=== PATIENT | male | born 1955 | race Caucasian/White ===

== ENCOUNTER 2021-08-29 08:54 | Emergency (ER) | payer MEDICARE, MEDICAID ==
[~2021-08-29] VITALS: Ht 177.8 cm; Wt 63.5 kg
[~2021-08-29 08:54] MED LIST: ALBMDI INH; CLON1TAB12 PO; HYDR-3919; LIP40 PO; MAGN400T10 PO; PHEDM120 PO; SER25 PO; SPIRIVA INH; VITD2000 PO; ZOLP10TA2 PO
[2021-08-29 08:56] VITALS: BP_SYST 102
--- NOTE | 2021-08-29 08:56 | NUR ---
Placed in room 6 . Placed on landscape account manager, blood pressure machine and pulse oximeter. To gown for exam. Side rails up. Report given to KANIKA SHAW.
--- NOTE | 2021-08-29 09:05 | NUR ---
Pt BIBA from home with c/o of hematuria from his monroy catheter. Pt is restless, grimicing and gaurding his lower abdomen. Pt is non-verbal, non-ambulatory, and incontinent. Pt has a history of CVA, COPD, and HTN. Jasmin urine is noted in the monroy bag. Patient is connected to the compliance monitor and safety precautions are in place.
--- NOTE | 2021-08-29 09:15 | NUR ---
Dr. Herrera at bedside with patient.
--- NOTE | 2021-08-29 09:16 | NUR ---
is at bedside.
[2021-08-29] MEDS ORDERED: LORazepam 2 MG/ML VIAL IVP ONE (09:30)
[2021-08-29] MEDS ORDERED: NACL 0.9% 1,000 ML IV ONE (09:30)
[2021-08-29 09:39] LABS: BASOPHILS % (AUTO) 0.4 % (0.0-2.0); EOSINOPHILS # (AUTO) 0.2 K/uL (0.0-0.4); EOSINOPHILS % (AUTO) 4.3 % (0.0-4.0); HEMATOCRIT 39.4 % (36-54); HEMOGLOBIN 12.8 g/dL (14.0-18.0); LYMPHOCYTES # (AUTO) 1.4 K/uL (1.0-5.5); LYMPHOCYTES % (AUTO) 29.5 % (20.5-51.5); MEAN CORPUSCULAR HEMOGLOBIN 30 pg (27-31); MEAN CORPUSCULAR HGB CONC 33 % (32-36); MEAN CORPUSCULAR VOLUME 91 fL (79.0-98.0); MONOCYTES # (AUTO) 0.5 K/uL (0.0-1.0); MONOCYTES % (AUTO) 9.9 % (1.7-9.3); NEUTROPHILS # (AUTO) 2.7 K/uL (1.8-7.7); NEUTROPHILS % (AUTO) 55.9 % (40.0-70.0); PLATELET COUNT (AUTO) 182 K/uL (130-430); RED BLOOD CELL COUNT(AUTO) 4.33 MIL/uL (4.2-6.2); RED CELL DISTRIBUTION WIDTH 13.7 % (9.0-15.0); WHITE BLOOD COUNT (AUTO) 4.8 K/uL (4.8-10.8)
[2021-08-29 09:56] LABS: INR 1.1 (0.80-1.20); PROTHROMBIN TIME 11.2 SECS (9.5-12.5)
[2021-08-29 10:11] LABS: CALCIUM 8.6 mg/dL (8.4-11.0); CREATININE 0.8 mg/dL (0.55-1.30); POTASSIUM 3.8 mmol/L (3.5-5.1)
[2021-08-29 10:18] LABS: ALBUMIN 3.3 g/dL (3.4-4.8); TOTAL BILIRUBIN 0.6 mg/dL (0.0-1.0)
--- NOTE | 2021-08-29 10:40 | NUR ---
Abdullahi catheter replaced with sterile technique. Irrigated with 150 ml of NS per MD order.
--- NOTE | 2021-08-29 10:55 | NUR ---
Urine collected and walked over to lab.
[2021-08-29 11:12] LABS: BILIRUBIN,URINE NEGATIVE (NEGATIVE); BLOOD, URINE 3+ (NEGATIVE); CLARITY/URINE SL CLOUDY (CLEAR); COLOR,URINE RED (YELLOW); GLUCOSE,URINE NEGATIVE (NEGATIVE); KETONES,URINE NEGATIVE (NEGATIVE); LEUKOCYTE ESTERASE ,URINE NEGATIVE (NEGATIVE); NITRITE, URINE NEGATIVE (NEGATIVE); PH,URINE 6.5 (5.0-8.0); PROTEIN URINE 2+ (NEGATIVE); UROBILINOGEN,URINE 0.2 (0.2-1.0)
[2021-08-29] MEDS ORDERED: fentaNYL CITRATE/PF 100 MCG/2 ML AMP IVP ONE (11:45)
[2021-08-29 11:48] LABS: BACTERIA,URINE None Seen /HPF (None Seen); RBC,URINE >100 /HPF (0-3); WBC,URINE NONE SEEN /HPF (0-3)
--- NOTE | 2021-08-29 11:55 | NUR ---
Continous bladder irrigation started per MD order. Pt tolerating well, pink tinged urine noted. Some leakage of clear fluids from the penis, stated that was normal for him.
--- NOTE | 2021-08-29 12:08 | NUR ---
Patient transported to radiology via GURNEY, accompanied by STAFF.
--- NOTE | 2021-08-29 15:29 | NUR ---
Called to notify about discharge and a change of clothes. Stated she will be here in 30 minutes.
[2021-08-29 16:06] VITALS: BP_SYST 140
--- NOTE | 2021-08-29 16:07 | NUR ---
Patient given written and verbal discharge instructions and verbalizes understanding. ER MD discussed with patient the results and treatment provided. Patient in stable condition. ID arm band removed. No Rx given. Patient educated on pain management and to follow up with PMD. Pain Scale 0/10. Opportunity for questions provided and answered. Medication side effect fact sheet provided.
== END 2021-08-29 16:06 | disposition home or self-care (01) ==
LOC: SED 08:54
DX: R31.9 Hematuria, unspecified (principal); Z88.5 Allergy status to narcotic agent; Z88.6 Allergy status to analgesic agent
CPT/HCPCS: 36415; 51702; 74176; 76376; 80053; 81000; 83690; 85025; 85610; 96361; 96374; 96375; 99285; J2060; J3010; J7030

== ENCOUNTER 2022-07-27 12:50 | Emergency (ER) | payer MEDICARE, MEDICAID ==
[~2022-07-27] VITALS: Ht 182.9 cm; Wt 68.0 kg
[2022-07-27 12:54] VITALS: BP_SYST 112
[2022-07-27 14:12] LABS: BASOPHILS % (AUTO) 0.3 % (0.0-2.0); EOSINOPHILS % (AUTO) 0.4 % (0.0-4.0); HEMATOCRIT 41.1 % (36-54); HEMOGLOBIN 13.8 g/dL (14.0-18.0); LYMPHOCYTES # (AUTO) 1.4 K/uL (1.0-5.5); LYMPHOCYTES % (AUTO) 16.6 % (20.5-51.5); MEAN CORPUSCULAR HEMOGLOBIN 30 pg (27-31); MEAN CORPUSCULAR HGB CONC 34 % (32-36); MEAN CORPUSCULAR VOLUME 90 fL (79.0-98.0); MONOCYTES # (AUTO) 0.7 K/uL (0.0-1.0); MONOCYTES % (AUTO) 9.1 % (1.7-9.3); NEUTROPHILS % (AUTO) 73.6 % (40.0-70.0); PLATELET COUNT (AUTO) 300 K/uL (130-430); RED BLOOD CELL COUNT(AUTO) 4.58 MIL/uL (4.2-6.2); WHITE BLOOD COUNT (AUTO) 8.1 K/uL (4.8-10.8)
[2022-07-27 14:29] LABS: CALCIUM 8.7 mg/dL (8.4-11.0); CREATININE 0.69 mg/dL (0.55-1.30)
[2022-07-27 14:34] LABS: ALBUMIN 3.1 g/dL (3.4-4.8); TOTAL BILIRUBIN 0.5 mg/dL (0.0-1.0)
[2022-07-27 14:49] LABS: BILIRUBIN,URINE NEGATIVE (NEGATIVE); BLOOD, URINE 1+ (NEGATIVE); CLARITY/URINE CLEAR (CLEAR); COLOR,URINE YELLOW (YELLOW); GLUCOSE,URINE NEGATIVE (NEGATIVE); KETONES,URINE NEGATIVE (NEGATIVE); LEUKOCYTE ESTERASE ,URINE NEGATIVE (NEGATIVE); NITRITE, URINE NEGATIVE (NEGATIVE); PROTEIN URINE NEGATIVE (NEGATIVE); UROBILINOGEN,URINE 0.2 (0.2-1.0)
[2022-07-27 14:57] LABS: WBC,URINE 0-3 /HPF (0-3)
[2022-07-27 14:58] LABS: BACTERIA,URINE FEW /HPF (None Seen); MUCUS,URINE None Seen /LPF (None Seen); URINE AMORPHOUS PHOSPHATES 1+ /HPF (None Seen)
[2022-07-27] MEDS ORDERED: HYDROcodone/ACETAMIN 5-325 MG TAB (NORCO/ VICODIN) PO ONE (15:30)
[2022-07-27] MEDS ORDERED: POLY119P2 PO (17:23)
[2022-07-27 18:09] VITALS: BP_SYST 112
== END 2022-07-27 18:09 | disposition home or self-care (01) ==
LOC: SED 12:50
DX: K59.00 Constipation, unspecified (principal); R33.9 Retention of urine, unspecified; N40.0 Benign prostatic hyperplasia without lower urinary tract symptoms; R10.9 Unspecified abdominal pain; J44.9 Chronic obstructive pulmonary disease, unspecified; Z88.5 Allergy status to narcotic agent; Z88.6 Allergy status to analgesic agent; Z79.899 Other long term (current) drug therapy
CPT/HCPCS: 99285; 74177; 80053; 81000; 83690; 85025; 36415; 76376; 83605; Q9967

== ENCOUNTER 2022-10-27 02:45 | Inpatient (IN) | payer MEDICARE, MEDICAID ==
[2022-10-27] VITALS (7 sets, daily range): BP systolic 115–136; PULSE 84–98; RESP 17–22; TEMP 97.2–97.7; O2SAT 96–98
[~2022-10-27] VITALS: Ht 172.7 cm; Wt 54.4 kg
[~2022-10-27 02:45] MED LIST changes: +ALBU2.5V7 INH; +CLOP75TA32 PO; +DOXY100C5 PO; +HYDR-3927 PO; +IPRA4AER INH; +POLY119P2 PO; +PRO40 PO; +SENN15TA PO
[2022-10-27] MEDS ORDERED: NACL 0.9% 1,000 ML IV ONE ×2 (03:00→06:30)
[2022-10-27] MEDS ORDERED: ONDANSETRON HCL 4 MG/2 ML VIAL IVP ONE (03:00)
[2022-10-27 03:37] LABS: BASOPHILS % (AUTO) 0.3 % (0.0-2.0); HEMATOCRIT 49.2 % (36-54); HEMOGLOBIN 15.8 g/dL (14.0-18.0); LYMPHOCYTES # (AUTO) 0.6 K/uL (1.0-5.5); LYMPHOCYTES % (AUTO) 4.2 % (20.5-51.5); MEAN CORPUSCULAR HEMOGLOBIN 29 pg (27-31); MEAN CORPUSCULAR HGB CONC 32 % (32-36); MEAN CORPUSCULAR VOLUME 90 fL (79.0-98.0); MONOCYTES # (AUTO) 0.9 K/uL (0.0-1.0); MONOCYTES % (AUTO) 5.6 % (1.7-9.3); NEUTROPHILS # (AUTO) 13.8 K/uL (1.8-7.7); NEUTROPHILS % (AUTO) 89.9 % (40.0-70.0); PLATELET COUNT (AUTO) 326 K/uL (130-430); RED BLOOD CELL COUNT(AUTO) 5.45 MIL/uL (4.2-6.2); RED CELL DISTRIBUTION WIDTH 14.9 % (9.0-15.0); WHITE BLOOD COUNT (AUTO) 15.3 K/uL (4.8-10.8)
[2022-10-27 03:44] LABS: CALCIUM 9.3 mg/dL (8.4-11.0); CREATININE 0.79 mg/dL (0.55-1.30)
[2022-10-27 03:48] LABS: ALBUMIN 3.7 g/dL (3.4-4.8); TOTAL BILIRUBIN 0.6 mg/dL (0.0-1.0)
[2022-10-27 06:28] LABS: BILIRUBIN,URINE NEGATIVE (NEGATIVE); BLOOD, URINE 1+ (NEGATIVE); COLOR,URINE YELLOW (YELLOW); GLUCOSE,URINE NEGATIVE (NEGATIVE); KETONES,URINE TRACE (NEGATIVE); LEUKOCYTE ESTERASE ,URINE NEGATIVE (NEGATIVE); NITRITE, URINE NEGATIVE (NEGATIVE); PROTEIN URINE TRACE (NEGATIVE); UROBILINOGEN,URINE 0.2 (0.2-1.0)
[2022-10-27 06:31] LABS: CLARITY/URINE HAZY (CLEAR)
[2022-10-27 06:34] LABS: BACTERIA,URINE FEW /HPF (None Seen)
[2022-10-27 06:35] LABS: MUCUS,URINE 1+ /LPF (None Seen)
[2022-10-27] MEDS ORDERED: PIPERACILLIN/TAZO 3.375 GM in NS 50 ML IV ONE (07:00)
[2022-10-27] MEDS ORDERED: PIPERACILLIN/TAZOBACTAM 3.375 GM/VIAL (ZOSYN) IV ONE (07:16)
[2022-10-27 07:35] LABS: ACETONE, SERUM NEGATIVE (NEGATIVE)
[2022-10-27 07:46] LABS: AMYLASE 91 U/L (0-100)
[2022-10-27 07:47] LABS: LIPASE 57 U/L (73-393)
[2022-10-27] MEDS ORDERED: ALBUTEROL SULFATE 0.083% 2.5 MG/3 ML VIAL.NEB INH PRN (08:45)
[2022-10-27] MEDS ORDERED: MAGNESIUM SULFATE 50 ML IV PRN (08:45)
[2022-10-27] MEDS ORDERED: MUPIROCIN 2% TOPICAL OINTMENT 22 GM NS PRN (08:45)
[2022-10-27] MEDS ORDERED: POTASSIUM CHLORIDE 20 MEQ TAB.PRT.SR PO PRN (08:45)
[2022-10-27] MEDS ORDERED: DOCUSATE SODIUM 100 MG CAPSULE PO PRN (08:45)
[2022-10-27] MEDS ORDERED: IPRATROPIUM/ALBUTEROL SULFATE 120 PUFFS/4 GM INH INH PRN (08:45)
[2022-10-27] MEDS ORDERED: ACETAMINOPHEN 325 MG TABLET PO PRN (08:45)
[2022-10-27] MEDS: D5NS 1,000 ML IV SCH (09:57)
[2022-10-27 10:58] LABS: BILIRUBIN,URINE NEGATIVE (NEGATIVE); BLOOD, URINE 3+ (NEGATIVE); CLARITY/URINE CLEAR (CLEAR); COLOR,URINE YELLOW (YELLOW); GLUCOSE,URINE NEGATIVE (NEGATIVE); KETONES,URINE NEGATIVE (NEGATIVE); LEUKOCYTE ESTERASE ,URINE NEGATIVE (NEGATIVE); NITRITE, URINE NEGATIVE (NEGATIVE); PROTEIN URINE TRACE (NEGATIVE); UROBILINOGEN,URINE 0.2 (0.2-1.0)
[2022-10-27 11:15] LABS: WBC,URINE NONE SEEN /HPF (0-3)
[2022-10-27 11:16] LABS: BACTERIA,URINE None Seen /HPF (None Seen); MUCUS,URINE 1+ /LPF (None Seen)
[2022-10-27] MEDS ORDERED: GASTROGRAFIN 120 ML ONE (11:52)
[2022-10-27] MEDS ORDERED: MORPHINE 2 MG/ML INJ. SYRINGE IVP PRN (12:30)
[2022-10-27] MEDS: ONDANSETRON HCL 4 MG/2 ML VIAL IVP PRN (12:38)
[2022-10-27] MEDS ORDERED: QUEtiapine FUMARATE 25 MG TABLET PO ONE (13:30)
[2022-10-27] MEDS ORDERED: NALOXONE HCL 0.4 MG/ML AMP (NARCAN) IVP PRN (15:15)
[2022-10-27] MEDS ORDERED: LIDOCAINE TOPICAL OINT 5%, 35 GM TP PRN (15:15)
[2022-10-27] MEDS: MORPHINE 2 MG/ML INJ. SYRINGE IVP PRN (16:26)
[2022-10-27] MEDS: PIPERACILLIN/TAZO 3.375 GM in NS 50 ML IV SCH (17:16)
[2022-10-27] MEDS: HEPARIN SODIUM,PORCINE 5,000 UNITS/ML VIAL SUBCUT SCH (21:04)
[2022-10-28] MEDS: D5NS 1,000 ML IV SCH (00:15)
[2022-10-28] MEDS: PIPERACILLIN/TAZO 3.375 GM in NS 50 ML IV SCH ×5 (00:16→23:23)
[2022-10-28] MEDS: MORPHINE 2 MG/ML INJ. SYRINGE IVP PRN ×3 (00:17→15:21)
[2022-10-28] MEDS: ZOLPIDEM TARTRATE 5 MG TABLET PO PRN (00:17)
[2022-10-28 01:11] VITALS: BP_SYST 103; PULSE 107; RESP 18; TEMP 96.7; O2SAT 97
[2022-10-28 06:48] LABS: BASOPHILS % (AUTO) 0.2 % (0.0-2.0); HEMATOCRIT 46.7 % (36-54); HEMOGLOBIN 14.9 g/dL (14.0-18.0); LYMPHOCYTES # (AUTO) 0.9 K/uL (1.0-5.5); LYMPHOCYTES % (AUTO) 6.1 % (20.5-51.5); MEAN CORPUSCULAR HEMOGLOBIN 29 pg (27-31); MEAN CORPUSCULAR HGB CONC 32 % (32-36); MEAN CORPUSCULAR VOLUME 91 fL (79.0-98.0); MONOCYTES # (AUTO) 1.5 K/uL (0.0-1.0); MONOCYTES % (AUTO) 10.7 % (1.7-9.3); NEUTROPHILS # (AUTO) 11.6 K/uL (1.8-7.7); PLATELET COUNT (AUTO) 302 K/uL (130-430); RED BLOOD CELL COUNT(AUTO) 5.15 MIL/uL (4.2-6.2); RED CELL DISTRIBUTION WIDTH 14.7 % (9.0-15.0); WHITE BLOOD COUNT (AUTO) 13.9 K/uL (4.8-10.8)
[2022-10-28 07:19] LABS: CALCIUM 8.7 mg/dL (8.4-11.0); CREATININE 0.99 mg/dL (0.55-1.30)
[2022-10-28] MEDS: D5/0.45 NS 1,000 ML IV SCH (07:45)
[2022-10-28 08:03] VITALS: BP_SYST 134; PULSE 75; RESP 18; TEMP 97.6; O2SAT 96
[2022-10-28] MEDS: QUEtiapine FUMARATE 25 MG TABLET PO SCH (08:29)
[2022-10-28] MEDS: HEPARIN SODIUM,PORCINE 5,000 UNITS/ML VIAL SUBCUT SCH ×2 (08:33→21:26)
[2022-10-28 09:30] VITALS: O2SAT 96
[2022-10-28 12:00] VITALS: BP_SYST 118; PULSE 94; RESP 18; TEMP 98; O2SAT 93
[2022-10-28 16:00] VITALS: BP_SYST 117; PULSE 89; RESP 17; TEMP 97.6; O2SAT 94
[2022-10-28] MEDS: LORazepam 2 MG/ML VIAL IVP PRN (17:47)
[2022-10-28 20:00] VITALS: BP_SYST 117; PULSE 95; RESP 18; TEMP 96.9; O2SAT 95; O2SAT 96
[2022-10-29] VITALS (7 sets, daily range): BP systolic 105–135; PULSE 61–98; RESP 17–18; TEMP 97–99; O2SAT 93–97
[2022-10-29] MEDS: PIPERACILLIN/TAZO 3.375 GM in NS 50 ML IV SCH ×4 (05:21→23:22)
[2022-10-29] MEDS: D5/0.45 NS 1,000 ML IV SCH ×2 (05:21→17:24)
[2022-10-29 05:29] LABS: BASOPHILS # (AUTO) 0.1 K/uL (0.0-0.2); BASOPHILS % (AUTO) 0.7 % (0.0-2.0); EOSINOPHILS % (AUTO) 0.1 % (0.0-4.0); HEMATOCRIT 41.1 % (36-54); HEMOGLOBIN 12.9 g/dL (14.0-18.0); LYMPHOCYTES # (AUTO) 1.4 K/uL (1.0-5.5); LYMPHOCYTES % (AUTO) 10.4 % (20.5-51.5); MEAN CORPUSCULAR HEMOGLOBIN 29 pg (27-31); MEAN CORPUSCULAR HGB CONC 32 % (32-36); MEAN CORPUSCULAR VOLUME 91 fL (79.0-98.0); MONOCYTES # (AUTO) 1.2 K/uL (0.0-1.0); MONOCYTES % (AUTO) 8.9 % (1.7-9.3); NEUTROPHILS # (AUTO) 10.6 K/uL (1.8-7.7); NEUTROPHILS % (AUTO) 79.9 % (40.0-70.0); PLATELET COUNT (AUTO) 242 K/uL (130-430); RED BLOOD CELL COUNT(AUTO) 4.51 MIL/uL (4.2-6.2); RED CELL DISTRIBUTION WIDTH 14.8 % (9.0-15.0); WHITE BLOOD COUNT (AUTO) 13.2 K/uL (4.8-10.8)
[2022-10-29 06:00] LABS: CALCIUM 8.6 mg/dL (8.4-11.0); CREATININE 0.77 mg/dL (0.55-1.30)
[2022-10-29] MEDS: QUEtiapine FUMARATE 25 MG TABLET PO SCH (09:00)
[2022-10-29] MEDS: HEPARIN SODIUM,PORCINE 5,000 UNITS/ML VIAL SUBCUT SCH (09:00)
[2022-10-29] MEDS: IPRATROPIUM/ALBUTEROL SULFATE 3 ML AMPUL.NEB (DUONEB) INH PRN (09:06)
[2022-10-29] MEDS: MORPHINE 2 MG/ML INJ. SYRINGE IVP PRN ×2 (11:38→20:07)
[2022-10-29 15:10] LABS: INR 1.3 (0.80-1.20)
[2022-10-29 15:12] LABS: PROTHROMBIN TIME 13.1 SECS (9.5-12.5)
[2022-10-29] MEDS: D5W 1,000 ML IV SCH (18:23)
[2022-10-29] MEDS: LORazepam 2 MG/ML VIAL IVP PRN (21:28)
[2022-10-30] VITALS (8 sets, daily range): BP systolic 124–144; PULSE 68–79; RESP 18–19; TEMP 97.5–98.2; O2SAT 94–98
[2022-10-30] MEDS: MORPHINE 2 MG/ML INJ. SYRINGE IVP PRN ×3 (00:11→21:52)
[2022-10-30] MEDS: LORazepam 2 MG/ML VIAL IVP PRN ×2 (01:44→22:52)
[2022-10-30] MEDS: D5W 1,000 ML IV SCH ×2 (02:39→11:49)
[2022-10-30] MEDS: PIPERACILLIN/TAZO 3.375 GM in NS 50 ML IV SCH ×4 (05:37→22:48)
[2022-10-30 05:47] LABS: BASOPHILS % (AUTO) 0.1 % (0.0-2.0); EOSINOPHILS # (AUTO) 0.1 K/uL (0.0-0.4); EOSINOPHILS % (AUTO) 0.9 % (0.0-4.0); HEMATOCRIT 39.8 % (36-54); HEMOGLOBIN 12.7 g/dL (14.0-18.0); LYMPHOCYTES # (AUTO) 1.4 K/uL (1.0-5.5); LYMPHOCYTES % (AUTO) 17.1 % (20.5-51.5); MEAN CORPUSCULAR HEMOGLOBIN 29 pg (27-31); MEAN CORPUSCULAR HGB CONC 32 % (32-36); MEAN CORPUSCULAR VOLUME 91 fL (79.0-98.0); MONOCYTES # (AUTO) 1.2 K/uL (0.0-1.0); MONOCYTES % (AUTO) 14.1 % (1.7-9.3); NEUTROPHILS # (AUTO) 5.7 K/uL (1.8-7.7); NEUTROPHILS % (AUTO) 67.8 % (40.0-70.0); PLATELET COUNT (AUTO) 223 K/uL (130-430); RED CELL DISTRIBUTION WIDTH 14.2 % (9.0-15.0); WHITE BLOOD COUNT (AUTO) 8.5 K/uL (4.8-10.8)
[2022-10-30 06:16] LABS: ALBUMIN 2.7 g/dL (3.4-4.8); CALCIUM 8.4 mg/dL (8.4-11.0); CREATININE 0.65 mg/dL (0.55-1.30); TOTAL BILIRUBIN 0.8 mg/dL (0.0-1.0)
[2022-10-30] MEDS ORDERED: POTASSIUM CHLORIDE 40 MEQ, LIDOCAINE JECT 2% PF 100 MG 50 MG in NS 250 ML IV ONE (08:30)
[2022-10-30] MEDS: QUEtiapine FUMARATE 25 MG TABLET PO SCH (09:00)
[2022-10-30] MEDS: IPRATROPIUM/ALBUTEROL SULFATE 3 ML AMPUL.NEB (DUONEB) INH PRN (11:39)
[2022-10-30] MEDS ORDERED: METOCLOPRAMIDE HCL 10 MG/2 ML VIAL IVP PRN (15:45)
[2022-10-30] MEDS ORDERED: ONDANSETRON HCL 4 MG/2 ML VIAL IVP PRN (15:45)
[2022-10-30] MEDS ORDERED: fentaNYL CITRATE/PF 100 MCG/2 ML AMP IVP PRN (15:45)
[2022-10-30] MEDS ORDERED: fentaNYL CITRATE/PF 100 MCG/2 ML AMP ONE ×2 (16:15→18:38)
[2022-10-30] MEDS ORDERED: PROPOFOL 200MG/ 20ML VIAL (DIPRIVAN) IV ONE (16:15)
[2022-10-30] MEDS ORDERED: NEOSTIGMINE METHYLSULFATE 1 MG/ML, 10 ML VIAL ONE (16:15)
[2022-10-30] MEDS ORDERED: SEVOFLURANE 15 MIN GAS INH ONE (16:15)
[2022-10-30] MEDS ORDERED: LR 1,000 ML IV.SOLN IV ONE (16:15)
[2022-10-30] MEDS ORDERED: NS IRRIG SOLN 1000 ML IR ONE (16:15)
[2022-10-30] MEDS ORDERED: MIDAZOLAM HCL 2 MG/2 ML VIAL (VERSED) ONE (16:15)
[2022-10-30] MEDS ORDERED: ROCURONIUM BROMIDE 10 MG/ML (ZEMURON) ONE (16:15)
[2022-10-30] MEDS ORDERED: GLYCOPYRROLATE 0.2 MG/ML VIAL ONE (16:15)
[2022-10-30] MEDS ORDERED: ACETAMINOPHEN I.V. 1000 MG 100 ML IV ONE (16:47)
[2022-10-30] MEDS ORDERED: BUPIVACAINE LIPOSOME/PF 266 MG/20 ML VIAL INFIL ONE (16:47)
[2022-10-30 18:39] LABS: BASOPHILS % (AUTO) 0.2 % (0.0-2.0); EOSINOPHILS # (AUTO) 0.1 K/uL (0.0-0.4); EOSINOPHILS % (AUTO) 1.3 % (0.0-4.0); HEMATOCRIT 41.4 % (36-54); HEMOGLOBIN 13.3 g/dL (14.0-18.0); LYMPHOCYTES # (AUTO) 1.4 K/uL (1.0-5.5); LYMPHOCYTES % (AUTO) 14.9 % (20.5-51.5); MEAN CORPUSCULAR HEMOGLOBIN 29 pg (27-31); MEAN CORPUSCULAR HGB CONC 32 % (32-36); MEAN CORPUSCULAR VOLUME 91 fL (79.0-98.0); MONOCYTES % (AUTO) 9.8 % (1.7-9.3); NEUTROPHILS # (AUTO) 7.2 K/uL (1.8-7.7); NEUTROPHILS % (AUTO) 73.8 % (40.0-70.0); PLATELET COUNT (AUTO) 233 K/uL (130-430); RED BLOOD CELL COUNT(AUTO) 4.53 MIL/uL (4.2-6.2); RED CELL DISTRIBUTION WIDTH 14.2 % (9.0-15.0); WHITE BLOOD COUNT (AUTO) 9.7 K/uL (4.8-10.8)
[2022-10-30] MEDS: fentaNYL CITRATE/PF 100 MCG/2 ML AMP IVP PRN ×3 (18:39→18:55)
[2022-10-30 18:50] LABS: CALCIUM 8.1 mg/dL (8.4-11.0); CREATININE 0.72 mg/dL (0.55-1.30)
[2022-10-30] MEDS: ONDANSETRON HCL 4 MG/2 ML VIAL IVP PRN (21:34)
[2022-10-30] MEDS: LR 1,000 ML IV SCH (21:51)
[2022-10-31] VITALS (7 sets, daily range): BP systolic 108–126; PULSE 78–89; RESP 17–20; TEMP 97.9–98.1; O2SAT 97–98
[2022-10-31] MEDS: MORPHINE 2 MG/ML INJ. SYRINGE IVP PRN ×2 (02:06→20:57)
[2022-10-31] MEDS: LR 1,000 ML IV SCH ×2 (02:07→11:50)
[2022-10-31] MEDS: PIPERACILLIN/TAZO 3.375 GM in NS 50 ML IV SCH ×3 (05:17→18:33)
[2022-10-31] MEDS: LORazepam 2 MG/ML VIAL IVP PRN ×2 (05:20→22:30)
[2022-10-31] MEDS: ONDANSETRON HCL 4 MG/2 ML VIAL IVP PRN ×2 (05:28→20:57)
[2022-10-31 05:40] LABS: BASOPHILS % (AUTO) 0.1 % (0.0-2.0); EOSINOPHILS # (AUTO) 0.1 K/uL (0.0-0.4); HEMATOCRIT 39.6 % (36-54); LYMPHOCYTES # (AUTO) 1.3 K/uL (1.0-5.5); LYMPHOCYTES % (AUTO) 16.8 % (20.5-51.5); MEAN CORPUSCULAR HEMOGLOBIN 30 pg (27-31); MEAN CORPUSCULAR HGB CONC 33 % (32-36); MEAN CORPUSCULAR VOLUME 90 fL (79.0-98.0); MONOCYTES # (AUTO) 1.1 K/uL (0.0-1.0); MONOCYTES % (AUTO) 14.2 % (1.7-9.3); NEUTROPHILS # (AUTO) 5.2 K/uL (1.8-7.7); NEUTROPHILS % (AUTO) 67.9 % (40.0-70.0); PLATELET COUNT (AUTO) 203 K/uL (130-430); RED BLOOD CELL COUNT(AUTO) 4.42 MIL/uL (4.2-6.2); RED CELL DISTRIBUTION WIDTH 14.3 % (9.0-15.0); WHITE BLOOD COUNT (AUTO) 7.7 K/uL (4.8-10.8)
[2022-10-31 06:00] LABS: CREATININE 0.56 mg/dL (0.55-1.30)
[2022-10-31] MEDS: QUEtiapine FUMARATE 25 MG TABLET PO SCH (09:58)
[2022-10-31] MEDS ORDERED: HYDR-3917 PO (16:50)
[2022-10-31] MEDS: IPRATROPIUM/ALBUTEROL SULFATE 3 ML AMPUL.NEB (DUONEB) INH PRN (21:53)
[2022-11-01] VITALS (8 sets, daily range): BP systolic 115–132; PULSE 76–105; RESP 16–20; TEMP 96.8–98.3; O2SAT 93–99
[2022-11-01] MEDS: PIPERACILLIN/TAZO 3.375 GM in NS 50 ML IV SCH ×4 (00:09→17:46)
[2022-11-01] MEDS: LR 1,000 ML IV SCH ×3 (00:09→17:46)
[2022-11-01 06:10] LABS: BASOPHILS % (AUTO) 0.2 % (0.0-2.0); EOSINOPHILS # (AUTO) 0.1 K/uL (0.0-0.4); EOSINOPHILS % (AUTO) 1.3 % (0.0-4.0); HEMATOCRIT 39.2 % (36-54); HEMOGLOBIN 12.8 g/dL (14.0-18.0); LYMPHOCYTES % (AUTO) 12.1 % (20.5-51.5); MEAN CORPUSCULAR HEMOGLOBIN 29 pg (27-31); MEAN CORPUSCULAR HGB CONC 33 % (32-36); MEAN CORPUSCULAR VOLUME 90 fL (79.0-98.0); MONOCYTES # (AUTO) 1.3 K/uL (0.0-1.0); MONOCYTES % (AUTO) 15.4 % (1.7-9.3); NEUTROPHILS # (AUTO) 6.2 K/uL (1.8-7.7); PLATELET COUNT (AUTO) 215 K/uL (130-430); RED BLOOD CELL COUNT(AUTO) 4.37 MIL/uL (4.2-6.2); RED CELL DISTRIBUTION WIDTH 13.9 % (9.0-15.0); WHITE BLOOD COUNT (AUTO) 8.7 K/uL (4.8-10.8)
[2022-11-01 06:26] LABS: CALCIUM 8.2 mg/dL (8.4-11.0); CREATININE 0.7 mg/dL (0.55-1.30)
[2022-11-01] MEDS: IPRATROPIUM/ALBUTEROL SULFATE 3 ML AMPUL.NEB (DUONEB) INH PRN (08:27)
[2022-11-01] MEDS: QUEtiapine FUMARATE 25 MG TABLET PO SCH (08:50)
[2022-11-01] MEDS: ONDANSETRON HCL 4 MG/2 ML VIAL IVP PRN (22:18)
[2022-11-01] MEDS: MORPHINE 2 MG/ML INJ. SYRINGE IVP PRN (22:18)
[2022-11-02] VITALS (7 sets, daily range): BP systolic 101–140; PULSE 71–95; RESP 16–18; TEMP 96.7–98.4; O2SAT 91–98
[2022-11-02] MEDS: PIPERACILLIN/TAZO 3.375 GM in NS 50 ML IV SCH ×5 (00:54→23:11)
[2022-11-02] MEDS: LR 1,000 ML IV SCH ×2 (06:00→17:33)
[2022-11-02 06:32] LABS: BASOPHILS % (AUTO) 0.1 % (0.0-2.0); EOSINOPHILS # (AUTO) 0.2 K/uL (0.0-0.4); EOSINOPHILS % (AUTO) 2.9 % (0.0-4.0); HEMATOCRIT 37.1 % (36-54); HEMOGLOBIN 12.2 g/dL (14.0-18.0); LYMPHOCYTES % (AUTO) 12.2 % (20.5-51.5); MEAN CORPUSCULAR HEMOGLOBIN 30 pg (27-31); MEAN CORPUSCULAR HGB CONC 33 % (32-36); MEAN CORPUSCULAR VOLUME 90 fL (79.0-98.0); MONOCYTES # (AUTO) 1.1 K/uL (0.0-1.0); MONOCYTES % (AUTO) 13.6 % (1.7-9.3); NEUTROPHILS # (AUTO) 5.9 K/uL (1.8-7.7); NEUTROPHILS % (AUTO) 71.2 % (40.0-70.0); PLATELET COUNT (AUTO) 211 K/uL (130-430); RED BLOOD CELL COUNT(AUTO) 4.13 MIL/uL (4.2-6.2); RED CELL DISTRIBUTION WIDTH 14.3 % (9.0-15.0); WHITE BLOOD COUNT (AUTO) 8.3 K/uL (4.8-10.8)
[2022-11-02] MEDS: ONDANSETRON HCL 4 MG/2 ML VIAL IVP PRN (06:34)
[2022-11-02] MEDS: MORPHINE 2 MG/ML INJ. SYRINGE IVP PRN ×3 (06:36→20:25)
[2022-11-02 06:58] LABS: ALBUMIN 2.3 g/dL (3.4-4.8); CREATININE 0.64 mg/dL (0.55-1.30); TOTAL BILIRUBIN 1.1 mg/dL (0.0-1.0)
[2022-11-02] MEDS: QUEtiapine FUMARATE 25 MG TABLET PO SCH (09:00)
[2022-11-02] MEDS: IPRATROPIUM/ALBUTEROL SULFATE 3 ML AMPUL.NEB (DUONEB) INH PRN ×2 (09:26→12:54)
[2022-11-02] MEDS: ZOLPIDEM TARTRATE 5 MG TABLET PO PRN (23:10)
[2022-11-03] VITALS: BP_SYST 115; PULSE 80; RESP 18; TEMP 96.5; O2SAT 97
[2022-11-03 01:56] VITALS: BP_SYST 110; PULSE 76; RESP 17; TEMP 98.1; O2SAT 96
[2022-11-03] MEDS: LR 1,000 ML IV SCH ×2 (05:59→09:37)
[2022-11-03 08:18] VITALS: BP_SYST 123; PULSE 74; RESP 18; TEMP 98.4; O2SAT 99
[2022-11-03] MEDS: QUEtiapine FUMARATE 25 MG TABLET PO SCH (09:00)
[2022-11-03 09:30] LABS: CALCIUM 8.2 mg/dL (8.4-11.0); CREATININE 0.64 mg/dL (0.55-1.30)
[2022-11-03 11:25] VITALS: BP_SYST 109; PULSE 82; RESP 17; TEMP 97.7; O2SAT 96
[2022-11-03] MEDS: MORPHINE 2 MG/ML INJ. SYRINGE IVP PRN (11:42)
[2022-11-03] MEDS ORDERED: POTASSIUM CHLORIDE 40 MEQ in NS 250 ML IV ONE (12:15)
[2022-11-03] MEDS ORDERED: D5NS 1,000 ML IV SCH (16:30)
[2022-11-03 16:43] VITALS: BP_SYST 143; PULSE 84; RESP 18; TEMP 98; O2SAT 97
== END 2022-11-03 19:35 | disposition left against medical advice (07) | DRG 853 ==
LOC: SED 02:45 → STU 08:36 → SMU 10-31 14:14 → UNDODISIN 11-03 19:00
PROVIDERS: ADMIT General Practice; ATTEND General Practice
PROC: 0DN80ZZ Release Small Intestine, Open Approach (ICD-10-PCS; principal; 2022-10-30 16:24)
DX: A41.9 Sepsis, unspecified organism (principal); J69.0 Pneumonitis due to inhalation of food and vomit; J96.01 Acute respiratory failure with hypoxia; K56.609 Unspecified intestinal obstruction, unspecified as to partial versus complete obstruction; R47.01 Aphasia; I69.354 Hemiplegia and hemiparesis following cerebral infarction affecting left non-dominant side; J44.0 Chronic obstructive pulmonary disease with (acute) lower respiratory infection; E87.0 Hyperosmolality and hypernatremia; F10.10 Alcohol abuse, uncomplicated; Y90.9 Presence of alcohol in blood, level not specified; K21.9 Gastro-esophageal reflux disease without esophagitis; F39 Unspecified mood [affective] disorder; N20.0 Calculus of kidney; K66.0 Peritoneal adhesions (postprocedural) (postinfection); F14.10 Cocaine abuse, uncomplicated; E86.0 Dehydration; E78.5 Hyperlipidemia, unspecified; Z88.0 Allergy status to penicillin; Z88.8 Allergy status to other drugs, medicaments and biological substances; Z79.899 Other long term (current) drug therapy; Z79.02 Long term (current) use of antithrombotics/antiplatelets; Z87.891 Personal history of nicotine dependence; Z79.2 Long term (current) use of antibiotics; Z79.891 Long term (current) use of opiate analgesic; Z90.49 Acquired absence of other specified parts of digestive tract; Z74.01 Bed confinement status
CPT/HCPCS: 36415; 71045; 74018; 74250-TC; 76376; 80048; 80053; 81000; 82009; 82150; 83037; 83605; 83690; 83735; 84132; 85025; 85610-TC; 85730-TC; 86886; 86900; 86901; 87040; 87081; 92610-GN; 93005; 93306; 94640; 94760; 96361; 96365; 96375; 97110-GP; 97530-GP; 99285; A4649; C9290; G0378; J0131; J1644; J2060; J2270; J2405; J2543; J2704; J2710; J3010; J3465; J3480; J3490; J7030; J7042; J7050; J7060; J7120; Q9963

== ENCOUNTER 2022-12-01 09:31 | Emergency (ER) | payer MEDICARE, MEDICAID ==
[~2022-12-01] VITALS: Ht 160 cm; Wt 59.0 kg
[~2022-12-01 09:31] MED LIST changes: +HYDR-3917 PO
[2022-12-01 09:36] VITALS: BP_SYST 124; PULSE 71; RESP 18; TEMP 98.3; O2SAT 98
[2022-12-01 10:01] LABS: BILIRUBIN,URINE NEGATIVE (NEGATIVE); BLOOD, URINE 2+ (NEGATIVE); CLARITY/URINE CLEAR (CLEAR); COLOR,URINE YELLOW (YELLOW); GLUCOSE,URINE NEGATIVE (NEGATIVE); KETONES,URINE NEGATIVE (NEGATIVE); LEUKOCYTE ESTERASE ,URINE TRACE (NEGATIVE); NITRITE, URINE NEGATIVE (NEGATIVE); PH,URINE 6.5 (5.0-8.0); PROTEIN URINE NEGATIVE (NEGATIVE); UROBILINOGEN,URINE 0.2 (0.2-1.0)
[2022-12-01 10:07] LABS: BACTERIA,URINE FEW /HPF (None Seen)
[2022-12-01 10:08] LABS: MUCUS,URINE 1+ /LPF (None Seen)
[2022-12-01 10:12] LABS: BASOPHILS % (AUTO) 0.3 % (0.0-2.0); EOSINOPHILS % (AUTO) 0.5 % (0.0-4.0); HEMATOCRIT 39.2 % (36-54); HEMOGLOBIN 12.8 g/dL (14.0-18.0); LYMPHOCYTES # (AUTO) 0.9 K/uL (1.0-5.5); LYMPHOCYTES % (AUTO) 10.9 % (20.5-51.5); MEAN CORPUSCULAR HEMOGLOBIN 29 pg (27-31); MEAN CORPUSCULAR HGB CONC 33 % (32-36); MEAN CORPUSCULAR VOLUME 89 fL (79.0-98.0); MONOCYTES # (AUTO) 0.9 K/uL (0.0-1.0); MONOCYTES % (AUTO) 10.8 % (1.7-9.3); NEUTROPHILS # (AUTO) 6.4 K/uL (1.8-7.7); NEUTROPHILS % (AUTO) 77.5 % (40.0-70.0); PLATELET COUNT (AUTO) 397 K/uL (130-430); RED BLOOD CELL COUNT(AUTO) 4.43 MIL/uL (4.2-6.2); RED CELL DISTRIBUTION WIDTH 13.6 % (9.0-15.0); WHITE BLOOD COUNT (AUTO) 8.3 K/uL (4.8-10.8)
[2022-12-01 10:22] LABS: CREATININE 0.71 mg/dL (0.55-1.30)
[2022-12-01 10:27] LABS: TOTAL BILIRUBIN 0.5 mg/dL (0.0-1.0)
[2022-12-01] MEDS ORDERED: CEPH-548 PO (11:48)
[2022-12-01 12:12] VITALS: BP_SYST 124; PULSE 71; RESP 18; TEMP 98.3; O2SAT 98
== END 2022-12-01 12:11 | disposition home or self-care (01) ==
LOC: SED 09:31
DX: N39.0 Urinary tract infection, site not specified (principal); R33.9 Retention of urine, unspecified; I10 Essential (primary) hypertension; Z88.5 Allergy status to narcotic agent; Z88.6 Allergy status to analgesic agent; Z79.899 Other long term (current) drug therapy
CPT/HCPCS: 36415; 80053; 81000; 85025; 87086; 87186-TC; 99284

== ENCOUNTER 2023-02-26 12:04 | Inpatient (IN) | payer MEDICARE, MEDICAID ==
[~2023-02-26] VITALS: Ht 165.1 cm; Wt 54.4 kg
[~2023-02-26 12:04] MED LIST changes: +CEPH-548 PO; +CEPH125S PO; -CLON1TAB12 PO; -DOXY100C5 PO; +FAMO20TA8 PO; -HYDR-3917 PO; -HYDR-3919; -HYDR-3927 PO; -IPRA4AER INH; -MAGN400T10 PO; -PHEDM120 PO; -POLY119P2 PO; -PRO40 PO; -SENN15TA PO; -SPIRIVA INH; -ZOLP10TA2 PO
[2023-02-26 12:14] VITALS: RESP 16
[2023-02-26] MEDS ORDERED: NACL 0.9% 1,000 ML IV ONE ×2 (12:30→14:45)
[2023-02-26 13:01] LABS: BASOPHILS % (AUTO) 0.1 % (0.0-2.0); HEMATOCRIT 45.7 % (36-54); HEMOGLOBIN 14.8 g/dL (14.0-18.0); LYMPHOCYTES # (AUTO) 0.6 K/uL (1.0-5.5); LYMPHOCYTES % (AUTO) 4.5 % (20.5-51.5); MEAN CORPUSCULAR HEMOGLOBIN 29 pg (27-31); MEAN CORPUSCULAR HGB CONC 32 % (32-36); MEAN CORPUSCULAR VOLUME 89 fL (79.0-98.0); MONOCYTES # (AUTO) 0.9 K/uL (0.0-1.0); MONOCYTES % (AUTO) 6.6 % (1.7-9.3); NEUTROPHILS # (AUTO) 11.7 K/uL (1.8-7.7); NEUTROPHILS % (AUTO) 88.8 % (40.0-70.0); PLATELET COUNT (AUTO) 251 K/uL (130-430); RED BLOOD CELL COUNT(AUTO) 5.16 MIL/uL (4.2-6.2); RED CELL DISTRIBUTION WIDTH 18.1 % (9.0-15.0); WHITE BLOOD COUNT (AUTO) 13.2 K/uL (4.8-10.8)
[2023-02-26 13:12] LABS: ANION GAP 9 (5-15); CALCIUM 9.5 mg/dL (8.4-11.0); CARBON DIOXIDE 28 mmol/L (23-29); CHLORIDE 103 mmol/L (98-107); CREATININE 0.74 mg/dL (0.55-1.30); GFR AFRICAN AMERICAN 136 mL/min (>90); GLUCOSE 108 mg/dL (74-106); POTASSIUM 4.4 mmol/L (3.5-5.1); SODIUM SERUM 140 mmol/L (136-145); UREA NITROGEN, BLOOD 17 mg/dL (8-21)
[2023-02-26 13:13] LABS: GFR NON AFRICAN-AMERICAN 112 mL/min (>90)
[2023-02-26 13:19] LABS: ALANINE AMINOTRANSFERASE 53 U/L (12-78); ALBUMIN 3.5 g/dL (3.4-4.8); ASPARTATE AMINOTRANSFERASE 23 U/L (10-37); TOTAL PROTEIN, SERUM 7.7 g/dL (6.4-8.3)
[2023-02-26 13:22] LABS: INR 1.2 (0.80-1.20); PROTHROMBIN TIME 12.4 SECS (9.5-12.5)
[2023-02-26] MEDS ORDERED: ACETAMINOPHEN 500 MG TABLET PO ONE (14:30)
[2023-02-26] MEDS ORDERED: LORazepam 2 MG/ML VIAL IVP ONE (14:30)
[2023-02-26] MEDS ORDERED: PIPERACILLIN/TAZO 4.5GM/DEX-IS 100 ML IV SCH (14:45)
[2023-02-26] MEDS ORDERED: PIPERACILLIN/TAZO 4.5GM/DEX-IS 100 ML IV ONE (17:00)
[2023-02-26] MEDS ORDERED: DOCUSATE SODIUM 100 MG CAPSULE PO PRN (17:15)
[2023-02-26] MEDS ORDERED: MAGNESIUM SULFATE 50 ML IV PRN (17:15)
[2023-02-26] MEDS ORDERED: IPRATROPIUM/ALBUTEROL SULFATE 3 ML AMPUL.NEB (DUONEB) INH PRN (17:15)
[2023-02-26] MEDS ORDERED: ONDANSETRON HCL 4 MG/2 ML VIAL IVP PRN (17:15)
[2023-02-26] MEDS ORDERED: ACETAMINOPHEN 325 MG TABLET PO PRN (17:15)
[2023-02-26] MEDS ORDERED: MUPIROCIN 2% TOPICAL OINTMENT 22 GM NS PRN (17:15)
[2023-02-26] MEDS ORDERED: POTASSIUM CHLORIDE 20 MEQ TABLET.ER PO PRN (17:15)
[2023-02-26] MEDS ORDERED: ZOLPIDEM TARTRATE 5 MG TABLET PO PRN (17:15)
[2023-02-26 17:48] VITALS: PULSE 82; O2SAT 96
[2023-02-26 17:54] LABS: BILIRUBIN,URINE NEGATIVE (NEGATIVE); BLOOD, URINE NEGATIVE (NEGATIVE); CLARITY/URINE CLEAR (CLEAR); COLOR,URINE YELLOW (YELLOW); GLUCOSE,URINE NEGATIVE (NEGATIVE); KETONES,URINE NEGATIVE (NEGATIVE); LEUKOCYTE ESTERASE ,URINE NEGATIVE (NEGATIVE); NITRITE, URINE NEGATIVE (NEGATIVE); PROTEIN URINE NEGATIVE (NEGATIVE); UROBILINOGEN,URINE 0.2 (0.2-1.0)
[2023-02-26] MEDS ORDERED: HYDR-3927 PO (18:47)
[2023-02-26] MEDS ORDERED: HYDROcodone/ACETAMIN 5-325 MG TAB (NORCO/ VICODIN) GT ONE (19:00)
[2023-02-26] MEDS: ACETAMINOPHEN 325 MG TABLET PO PRN (19:44)
[2023-02-26] MEDS: NACL 0.9% 1,000 ML IV SCH (20:28)
[2023-02-26] MEDS: PIPERACILLIN/TAZO 3.375 GM in NS 50 ML IV SCH (21:00)
[2023-02-27] VITALS (11 sets, daily range): BP systolic 88–111; PULSE 62–79; RESP 16–20; TEMP 97.2–98.9; O2SAT 92–100
[2023-02-27] MEDS: LORazepam 2 MG/ML VIAL IVP PRN (02:28)
[2023-02-27 05:14] LABS: CALCIUM 8.8 mg/dL (8.4-11.0); CREATININE 0.6 mg/dL (0.55-1.30); POTASSIUM 3.9 mmol/L (3.5-5.1)
[2023-02-27 05:21] LABS: BASOPHILS % (AUTO) 0.2 % (0.0-2.0); EOSINOPHILS % (AUTO) 0.2 % (0.0-4.0); HEMATOCRIT 37.3 % (36-54); HEMOGLOBIN 11.9 g/dL (14.0-18.0); LYMPHOCYTES # (AUTO) 1.3 K/uL (1.0-5.5); LYMPHOCYTES % (AUTO) 15.5 % (20.5-51.5); MEAN CORPUSCULAR HEMOGLOBIN 28 pg (27-31); MEAN CORPUSCULAR HGB CONC 32 % (32-36); MEAN CORPUSCULAR VOLUME 89 fL (79.0-98.0); MONOCYTES # (AUTO) 0.7 K/uL (0.0-1.0); MONOCYTES % (AUTO) 8.2 % (1.7-9.3); NEUTROPHILS # (AUTO) 6.3 K/uL (1.8-7.7); NEUTROPHILS % (AUTO) 75.9 % (40.0-70.0); PLATELET COUNT (AUTO) 211 K/uL (130-430); RED BLOOD CELL COUNT(AUTO) 4.21 MIL/uL (4.2-6.2); RED CELL DISTRIBUTION WIDTH 17.6 % (9.0-15.0); WHITE BLOOD COUNT (AUTO) 8.3 K/uL (4.8-10.8)
[2023-02-27] MEDS: ATORVASTATIN 20 MG TABLET PO SCH (08:49)
[2023-02-27] MEDS: CLOPIDOGREL BISULFATE 75 MG TABLET PO SCH (08:49)
[2023-02-27] MEDS: HYDROcodone/ACETAMIN 5-325 MG TAB (NORCO/ VICODIN) GT PRN ×2 (09:37→15:22)
[2023-02-27] MEDS: PIPERACILLIN/TAZO 3.375 GM in NS 50 ML IV SCH ×2 (10:46→17:28)
[2023-02-27] MEDS: NACL 0.9% 1,000 ML IV SCH ×2 (10:47→23:00)
[2023-02-27] MEDS: IPRATROPIUM/ALBUTEROL SULFATE 3 ML AMPUL.NEB (DUONEB) INH SCH ×3 (15:49→23:46)
[2023-02-27] MEDS: QUEtiapine FUMARATE 25 MG TABLET PO SCH (17:28)
[2023-02-27] MEDS ORDERED: NS 500 ML IV ONE (21:30)
[2023-02-28] VITALS (11 sets, daily range): BP systolic 101–141; PULSE 51–68; RESP 18; TEMP 97.5–98.1; O2SAT 97–100
[2023-02-28] MEDS: HYDROcodone/ACETAMIN 5-325 MG TAB (NORCO/ VICODIN) GT PRN ×2 (01:11→12:33)
[2023-02-28] MEDS: PIPERACILLIN/TAZO 3.375 GM in NS 50 ML IV SCH ×3 (01:54→17:36)
[2023-02-28] MEDS: IPRATROPIUM/ALBUTEROL SULFATE 3 ML AMPUL.NEB (DUONEB) INH SCH ×6 (03:49→23:18)
[2023-02-28 06:54] LABS: BASOPHILS % (AUTO) 0.5 % (0.0-2.0); EOSINOPHILS # (AUTO) 0.1 K/uL (0.0-0.4); EOSINOPHILS % (AUTO) 2.7 % (0.0-4.0); HEMATOCRIT 34.9 % (36-54); HEMOGLOBIN 11.2 g/dL (14.0-18.0); LYMPHOCYTES # (AUTO) 1.3 K/uL (1.0-5.5); LYMPHOCYTES % (AUTO) 31.6 % (20.5-51.5); MEAN CORPUSCULAR HEMOGLOBIN 28 pg (27-31); MEAN CORPUSCULAR HGB CONC 32 % (32-36); MEAN CORPUSCULAR VOLUME 89 fL (79.0-98.0); MONOCYTES # (AUTO) 0.6 K/uL (0.0-1.0); MONOCYTES % (AUTO) 14.7 % (1.7-9.3); NEUTROPHILS % (AUTO) 50.5 % (40.0-70.0); PLATELET COUNT (AUTO) 189 K/uL (130-430); RED BLOOD CELL COUNT(AUTO) 3.94 MIL/uL (4.2-6.2); RED CELL DISTRIBUTION WIDTH 17.6 % (9.0-15.0)
[2023-02-28 07:04] LABS: CALCIUM 8.9 mg/dL (8.4-11.0); CREATININE 0.51 mg/dL (0.55-1.30); POTASSIUM 3.7 mmol/L (3.5-5.1)
[2023-02-28] MEDS: CLOPIDOGREL BISULFATE 75 MG TABLET PO SCH (08:21)
[2023-02-28] MEDS: ATORVASTATIN 20 MG TABLET PO SCH (08:21)
[2023-02-28] MEDS: ACETAMINOPHEN 325 MG TABLET PO PRN (08:21)
[2023-02-28] MEDS: NACL 0.9% 1,000 ML IV SCH (12:09)
[2023-02-28] MEDS: QUEtiapine FUMARATE 25 MG TABLET PO SCH (17:36)
[2023-03-01] MEDS: HYDROcodone/ACETAMIN 5-325 MG TAB (NORCO/ VICODIN) GT PRN (00:31)
[2023-03-01 01:10] VITALS: BP_SYST 126; PULSE 74; RESP 16; TEMP 97.1; O2SAT 99
[2023-03-01] MEDS: PIPERACILLIN/TAZO 3.375 GM in NS 50 ML IV SCH ×2 (02:09→09:51)
[2023-03-01] MEDS: LORazepam 2 MG/ML VIAL IVP PRN (02:09)
[2023-03-01] MEDS: NACL 0.9% 1,000 ML IV SCH (02:27)
[2023-03-01] MEDS: IPRATROPIUM/ALBUTEROL SULFATE 3 ML AMPUL.NEB (DUONEB) INH SCH ×2 (03:34→07:28)
[2023-03-01 03:48] VITALS: O2SAT 97
[2023-03-01 04:00] VITALS: BP_SYST 114; PULSE 73; RESP 16; TEMP 97; O2SAT 99
[2023-03-01 07:18] LABS: BASOPHILS % (AUTO) 0.4 % (0.0-2.0); EOSINOPHILS # (AUTO) 0.1 K/uL (0.0-0.4); EOSINOPHILS % (AUTO) 2.8 % (0.0-4.0); HEMATOCRIT 39.6 % (36-54); HEMOGLOBIN 12.8 g/dL (14.0-18.0); LYMPHOCYTES % (AUTO) 22.7 % (20.5-51.5); MEAN CORPUSCULAR HEMOGLOBIN 28 pg (27-31); MEAN CORPUSCULAR HGB CONC 32 % (32-36); MEAN CORPUSCULAR VOLUME 88 fL (79.0-98.0); MONOCYTES # (AUTO) 0.6 K/uL (0.0-1.0); NEUTROPHILS # (AUTO) 2.5 K/uL (1.8-7.7); NEUTROPHILS % (AUTO) 59.1 % (40.0-70.0); PLATELET COUNT (AUTO) 237 K/uL (130-430); RED BLOOD CELL COUNT(AUTO) 4.52 MIL/uL (4.2-6.2); RED CELL DISTRIBUTION WIDTH 17.4 % (9.0-15.0); WHITE BLOOD COUNT (AUTO) 4.2 K/uL (4.8-10.8)
[2023-03-01 07:27] LABS: CALCIUM 9.3 mg/dL (8.4-11.0); CREATININE 0.57 mg/dL (0.55-1.30); POTASSIUM 3.5 mmol/L (3.5-5.1)
[2023-03-01 07:31] VITALS: O2SAT 99
[2023-03-01 08:00] VITALS: BP_SYST 119; PULSE 74; RESP 17; TEMP 98.6; O2SAT 98
[2023-03-01] MEDS: ATORVASTATIN 20 MG TABLET PO SCH (09:50)
[2023-03-01] MEDS: CLOPIDOGREL BISULFATE 75 MG TABLET PO SCH (09:51)
[2023-03-01] MEDS ORDERED: MOXI400T30 PO (10:18)
[2023-03-01 10:42] VITALS: BP_SYST 119; PULSE 74; RESP 17; TEMP 98.2; O2SAT 98
== END 2023-03-01 11:45 | disposition home or self-care (01) | DRG 871 ==
LOC: SED 12:04 → SMU 18:16
PROVIDERS: ADMIT General Practice; ATTEND General Practice
DX: A41.9 Sepsis, unspecified organism (principal); J15.9 Unspecified bacterial pneumonia; J69.0 Pneumonitis due to inhalation of food and vomit; J96.00 Acute respiratory failure, unspecified whether with hypoxia or hypercapnia; R47.01 Aphasia; E46 Unspecified protein-calorie malnutrition; J44.0 Chronic obstructive pulmonary disease with (acute) lower respiratory infection; R53.81 Other malaise; G89.29 Other chronic pain; I10 Essential (primary) hypertension; F39 Unspecified mood [affective] disorder; E78.5 Hyperlipidemia, unspecified; Z93.1 Gastrostomy status; Z88.0 Allergy status to penicillin; Z87.440 Personal history of urinary (tract) infections; Z87.01 Personal history of pneumonia (recurrent); Z86.73 Personal history of transient ischemic attack (TIA), and cerebral infarction without residual deficits; Z74.01 Bed confinement status; Z88.8 Allergy status to other drugs, medicaments and biological substances; Z79.899 Other long term (current) drug therapy; Z68.20 Body mass index [BMI] 20.0-20.9, adult
CPT/HCPCS: 36415; 70450-TC; 71045; 76376; 80048; 80053; 81001; 81003; 83037; 83605; 83735; 84484; 85025; 85610-TC; 85730-TC; 87040; 87086; 93005; 94640; 94760; 99285; J2060; J2405; J2543

== ENCOUNTER 2023-03-21 15:17 | Emergency (ER) | payer MEDICARE, MEDICAID ==
[~2023-03-21] VITALS: Ht 170.2 cm; Wt 63.5 kg
[~2023-03-21 15:17] MED LIST changes: -CEPH-548 PO; -CEPH125S PO; +HYDR-3927 PO; +MOXI400T30 PO
[2023-03-21 15:23] VITALS: BP_SYST 106; PULSE 68; RESP 16; TEMP 98; O2SAT 98
[2023-03-21 16:51] LABS: BASOPHILS % (AUTO) 0.3 % (0.0-2.0); EOSINOPHILS # (AUTO) 0.1 K/uL (0.0-0.4); EOSINOPHILS % (AUTO) 0.9 % (0.0-4.0); HEMATOCRIT 41.1 % (36-54); LYMPHOCYTES # (AUTO) 1.3 K/uL (1.0-5.5); LYMPHOCYTES % (AUTO) 16.7 % (20.5-51.5); MEAN CORPUSCULAR HEMOGLOBIN 28 pg (27-31); MEAN CORPUSCULAR HGB CONC 32 % (32-36); MEAN CORPUSCULAR VOLUME 89 fL (79.0-98.0); MONOCYTES # (AUTO) 0.8 K/uL (0.0-1.0); MONOCYTES % (AUTO) 10.5 % (1.7-9.3); NEUTROPHILS # (AUTO) 5.7 K/uL (1.8-7.7); NEUTROPHILS % (AUTO) 71.6 % (40.0-70.0); PLATELET COUNT (AUTO) 181 K/uL (130-430); RED CELL DISTRIBUTION WIDTH 16.9 % (9.0-15.0); WHITE BLOOD COUNT (AUTO) 7.9 K/uL (4.8-10.8)
[2023-03-21 16:58] LABS: ABG O2 SAT% ESTIMATE 95.8 % (94.0-100.0); BLOOD GAS BASE EXCESS 0.1 mmol/L (-3.0-3.0); BLOOD GAS HCO3 23.7 mmol/L (21.0-27.0); BLOOD GAS PCO2 35.5 mmHg (32.0-45.0); BLOOD GAS PH 7.443 (7.350-7.450); BLOOD GAS PO2 75.9 mmHg (75.0-100.0)
[2023-03-21 17:00] LABS: ALLEN'S TEST POSITIVE (P)
[2023-03-21 17:04] LABS: ANION GAP 3 (5-15); CALCIUM 9.3 mg/dL (8.4-11.0); CARBON DIOXIDE 32 mmol/L (23-29); CHLORIDE 101 mmol/L (98-107); CREATININE 0.47 mg/dL (0.55-1.30); GFR AFRICAN AMERICAN 229 mL/min (>90); GLUCOSE 94 mg/dL (74-106); POTASSIUM 3.6 mmol/L (3.5-5.1); SODIUM SERUM 136 mmol/L (136-145); UREA NITROGEN, BLOOD 20 mg/dL (8-21)
[2023-03-21 17:05] LABS: GFR NON AFRICAN-AMERICAN 189 mL/min (>90)
[2023-03-21 17:08] LABS: INR 1.2 (0.80-1.20); PROTHROMBIN TIME 11.9 SECS (9.5-12.5)
[2023-03-21 17:11] LABS: ALANINE AMINOTRANSFERASE 35 U/L (12-78); ASPARTATE AMINOTRANSFERASE 18 U/L (10-37); BILIRUBIN,DIRECT 0.2 mg/dL (0.0-0.3); TOTAL BILIRUBIN 0.6 mg/dL (0.0-1.0); TOTAL PROTEIN, SERUM 6.4 g/dL (6.4-8.3)
[2023-03-21 17:21] LABS: BILIRUBIN,URINE NEGATIVE (NEGATIVE); BLOOD, URINE NEGATIVE (NEGATIVE); CLARITY/URINE CLEAR (CLEAR); COLOR,URINE YELLOW (YELLOW); GLUCOSE,URINE NEGATIVE (NEGATIVE); KETONES,URINE NEGATIVE (NEGATIVE); LEUKOCYTE ESTERASE ,URINE NEGATIVE (NEGATIVE); NITRITE, URINE NEGATIVE (NEGATIVE); PROTEIN URINE NEGATIVE (NEGATIVE)
[2023-03-21 21:08] VITALS: BP_SYST 103; PULSE 60; RESP 16; TEMP 98.3; O2SAT 98
== END 2023-03-21 21:08 | disposition home or self-care (01) ==
LOC: SED 15:17
DX: J06.9 Acute upper respiratory infection, unspecified (principal); I10 Essential (primary) hypertension; J44.9 Chronic obstructive pulmonary disease, unspecified; Z88.5 Allergy status to narcotic agent; Z88.8 Allergy status to other drugs, medicaments and biological substances; Z79.899 Other long term (current) drug therapy
CPT/HCPCS: 36415; 36600; 71045; 80048; 80076; 81001; 81003; 82803; 83605; 83880; 84484; 85025; 85610-TC; 85730-TC; 87040; 87086; 93005; 99285